=== PATIENT | female | born 1960 | race Caucasian/White ===

== ENCOUNTER 2021-08-22 07:08 | Outpatient (REF) | payer OTHER, SELFPAY ==
[2021-08-24 08:51] LABS: Lyme Abs Screen <0.90 index
== END 2021-08-22 07:09 | disposition home or self-care (01) ==
LOC: HO.HMGCLDS 07:08
PROVIDERS: Visit Provider Internal Medicine
DX: A69.20 Lyme disease, unspecified (principal)
CPT/HCPCS: 36415; 86617; 86618